=== PATIENT | male | born 1975 | race African-American/Black ===

== ENCOUNTER 2025-01-26 20:38 | Emergency (ER) | payer BC, SELFPAY ==
[2025-01-26 20:38] VITALS: BMI 28.6; BMI 29.1
[2025-01-26 20:52] VITALS: BP 150/100
[2025-01-26 21:06] VITALS: BP 147/94
[2025-01-26 21:26] LABS: % Basophils 0.5 % (0-2); % Eosinophils 3.2 % (0-6); % Immature Granulocytes 0.2 % (0-0.5); % Lymphocytes 34.1 % (20.5-51.1); % Monocytes 9.3 % (1.7-9.3); % Neutrophils 52.7 % (42.2-75.2); Absolute Eosinophils 0.2 10^3/uL (0-0.7); Absolute Lymphocytes 2.1 10^3/uL (1.2-3.4); Absolute Monocytes 0.6 10^3/uL (0.1-0.6); Absolute Neutrophils 3.2 10^3/uL (1.4-6.5); Hematocrit 40.5 % (39.0-52.0); Hemoglobin 14.4 g/dL (13.0-18.0); Mean Corp Hgb Conc. 35.6 g/dL (33.0-37.0); Mean Corpuscular Hgb 29.2 pg (27.0-31.0); Mean Corpuscular Volume 82.2 fL (80.0-94.0); Mean Platelet Volume 11.7 fL (7.4-10.4); Nucleated Red Blood Cells % 0 % (-); Platelet Count 152 10^3/uL (130-400); Red Blood Cell Count 4.93 10^6/uL (4.70-6.10); Red Cell Dist. Width 12.7 % (11.5-14.5)
[2025-01-26 21:30] VITALS: BP 138/93
[2025-01-26 21:36] LABS: INR 0.93; PT 12.8 Sec (11.4-14.6)
[2025-01-26 21:37] LABS: ALT (SGPT) 50 U/L (0-50); AST (SGOT) 41 U/L (17-59); Albumin 4.9 g/dl (3.5-5.0); Alkaline Phosphatase 61 U/L (38-126); Blood Urea Nitrogen 18 mg/dl (9-20); Calcium 9.6 mg/dl (8.4-10.2); Carbon Dioxide 26 mmol/L (22-30); Chloride 106 mmol/L (98-107); Estimated Creatinine Clearance 87 ml/min; Glucose 95 mg/dl (70-99); Potassium 4.1 mmol/L (3.5-5.1); Sodium 140 mmol/L (135-145); Total Bilirubin 0.8 mg/dl (0.2-1.3); Total Protein 7.9 g/dl (6.3-8.2); eGFR > 60.00
[2025-01-26 21:49] LABS: Troponin I < 0.012 ng/ml
[2025-01-27] VITALS: BP 119/94
[2025-01-27 00:25] LABS: Troponin I < 0.012 ng/ml
--- NOTE | 2025-01-27 00:33 | ED.GENMED ---
History of Present Illness
General
Chief Complaint: Chest Pain
Source: patient and spouse
Time Seen by Provider: 01/26/25 23:29
History of Present Illness
History of Present Illness:
This is a 49yo with h/o HTN and hyperlipidemia who presents with chest pain. The patient states been ongoing for about a week. Does radiate toward the left side and around the shoulder. States this has been going on daily. States its mild but
his wanted him to get checked out. No history of coronary disease. He does have a history of hypertension hyperlipidemia. Today his did give him an aspirin. He was swimming earlier this evening. States he tolerated swimming fine and
had the discomfort prior to swimming. Afterwards he still had it decided to come in. His spouse was on the phone and adds that she just wanted to make sure everything was okay. He does follow with a napper grinder and has had a stress test that was
negative in the past. He is not a smoker. No early coronary history in family. The patient denies any poor tolerance of exercise. He denies any worsening symptoms with exertion. No shortness of breath at all
Past History
Past History
ED Past Medical History: HTN and Hypercholesterolemia
Phy Exam
Physical Exam
Physical Exam:
CONSTITUTIONAL Patient alert and oriented to person, place and time. Well-appearing. Vital signs reviewed.
HEAD atraumatic, normocephalic.
EYES eyelids normal to inspection, Extraocular muscles intact, Conjunctiva normal, Sclera normal.
NECK normal range of motion, Trachea midline, no jugular venous distention.
RESPIRATORY CHEST No respiratory distress noted, Chest expansion equal, Bilateral breath sounds clear.
CARDIOVASCULAR regular rate and rhythm, Heart sounds normal.
ABDOMEN abdomen nontender, Bowel sounds normal. No distention.
BACK normal inspection, no obvious deformities
UPPER EXTREMITY range of motion normal, Motor strength normal, no cyanosis, no edema.
LOWER EXTREMITY range of motion normal, Motor strength normal, no cyanosis, no edema.
NEURO Speech normal, No focal motor deficits, Arvin coma scale 15, Memory normal, Cranial Nerves intact to screening exam.
SKIN skin warm, dry, and normal in color.
Scores
Heart Score for Chest Pain Patients
STEMI patient?: No
History: Slightly or Non-Suspicious
ECG: Normal
Age: >45 - <65 years
Risk Factors: 1 or 2 Risk Factors
Troponin: </= Normal Limit
Heart Score for Chest Pain Patients: 2
Heart Score Risk: 2.5% MACE over next 6 weeks
Course
Orders/Labs/Results
Orders:
Orders
01/26/25 20:40
EKG [Electrocardiogram (*1)] Urgent
Reason for Study: Chest Pain
EKG- Treatment ONCE
01/26/25 21:14
Complete Blood Count/With Diff Urgent
Comprehensive Metabolic Panel Urgent
Prothrombin Time Urgent
Troponin I Urgent
01/26/25 23:51
Electrocardiogram (*1) Urgent
Reason for Study: Chest Pain
EKG- Treatment ONCE
01/26/25 23:55
Troponin I Urgent
01/27/25 00:00
CR Chest - 2 Views Urgent
Reason For Exam: cp
Abnormal Lab Results
01/26/25
21:14
MPV 11.7 H fL
(7.4-10.4)
01/26/25 21:14
01/26/25 21:14
Vital Signs
Initial and Last Documented VS:
Initial Vital Signs
Temp Pulse Resp BP Pulse Ox
98.3 F 68 18 150/100 100
01/26/25 20:52 01/26/25 20:52 01/26/25 20:52 01/26/25 20:52 01/26/25 20:52
Last Documented Vital Signs
Temp Pulse Resp BP Pulse Ox
98.3 F 62 17 138/93 98
01/26/25 20:52 01/26/25 23:30 01/26/25 23:30 01/26/25 21:30 01/26/25 23:30
MDM/Problems Addressed
Differential Diagnosis Includes:
ACS, MN, PE, dissection, pneumothorax, musculoskeletal etiology, reflux, esophagitis
MDM/Problems Addressed:
Chest pain
*Radiology
Radiology exam reviewed: all reviewed NAD by ED Provider
*Pulse Oximetry
Patient hypoxic: no
*EKG
Interpreted by ED Provider?: Yes
Interpretation: normal
Rate: normal
Rhythm: sinus
[place]: normal axis
Interval: normal interval
QRS Pattern: normal QRS
Ischemia: no ischemia
*[employer] Automatic Interpretation
Rate: normal
Interpretation: normal
Rhythm: sinus
*Critical Care Note
Total Time (30-74mins, 75-104mins- exclusive of procedures): Not Applicable
Data Reviewed
Source: patient and spouse
Further Testing Considered But Not Given:
Consider CTA but no PE risk. No hypoxia. No shortness of breath.
Patient Management
Escalation/DeEscalation of care consider admission/obs:
Patient otherwise appears well. Will advise 81 mg of aspirin daily. I advised him to come back if any symptoms worsen. He will follow-up with his napper grinder. Otherwise appears well. Negative troponin x 2 despite 1 week of symptoms.
ED Attending Note
-
Portions of this chart may have been created with voice recognition software.� Occasional wrong word or��sound alike� substitutions may have occurred due to the inherent limitations of voice recognition software.
Discharge Plan
Departure
Patient Disposition: Home (Routine Discharge)
Date of Disposition: 01/27/25
Time of Disposition: 00:34
Patient with high blood pressure during this ER visit?: Yes
Discharge Problem:
Chest pain
Instructions: Chest Pain NON-[facility] [employer] Follow Up, BLOOD PRESSURE
Prescriptions:
No Action
[place] 3 Capsule
1,000 mg PO DAILY
amlodipine 5 mg Tablet
5 mg PO DAILY
losartan 100 mg Tablet
100 mg PO DAILY
rosuvastatin 20 mg Tablet
20 mg PO DAILY
Referrals:
OTONIEL HORTON DO [Family Provider] -
Activity Restrictions/Additional Instructions:
Please take 81 mg of aspirin a day. Please avoid strenuous or exertional activity until cleared by cardiology. Please see your napper grinder in the next 3 days for follow-up and reevaluation. Return immediately for worsening pain, shortness breath,
palpitations, sweating, nausea, weakness of any kind, numbness, tingling or any other concerns.
Interventions
Interventions:
*Risk Screen - Suicide Last Done: 01/26/25 20:52
*General Assessment Last Done: 01/26/25 20:52
*Neglect/Abuse Screening Last Done: 01/26/25 20:52
*ED COVID-19 Vaccine History Last Done: 01/26/25 21:23
ED- Cardiac Assessment Last Done: 01/26/25 21:23
Discharge Date and Time
Print Language: TELUGU
== END 2025-01-27 00:54 | disposition home or self-care (01) ==
LOC: EMR 20:38
PROVIDERS: Emergency Medicine; EMERGENCY PHYSICIAN Emergency Medicine
DX: R07.89 Other chest pain (principal); I10 Essential (primary) hypertension; E78.00 Pure hypercholesterolemia, unspecified
CPT/HCPCS: 99283; 71046; 80053; 84484; 85025; 85610; 93005